=== PATIENT | female | born 1970 | race Caucasian/White ===

== ENCOUNTER 2017-01-30 10:27 | Emergency (ER) | payer MEDICAID ==
[2017-01-30 10:43] LABS: % IMMATURE GRANULYOCYTES 0.2 % (0.0-1.1); ABSOLUTE IMMATURE GRANULOCYTES 0.01 10^3/uL (0.00-0.10); ADD DIFF? NO; ADD MORPH? NO; ADD SCAN? NO; ATYPICAL LYMPHOCYTE FLAG 10 (0-99); FRAGMENT RBC FLAG 0 (0-99); LEFT SHIFT FLG 0 (0-99); LIPEMIA HEMOLYSIS FLAG 80 (0-99); MEAN CELL HEMOGLOBIN 28.3 pg (27.9-34.1); MEAN CELL HEMOGLOBIN CONCENTR. 32.5 g/dL (32.4-36.7); MEAN PLATELET VOLUME 10.6 fL (8.7-11.7); PLATELET CLUMPS FLAG 0 (0-99); PLATELET COUNT 250 10^3/uL (150-400); RED CELL DISTRIBUTION WIDTH 14.5 % (11.5-15.2)
--- NOTE | 2017-01-30 10:47 | CPEKG ---
Heart Rate: 73 RR Interval: 822 P-R Interval: 136 QRSD Interval: 78 QT Interval: 376 QTC Interval: 415 P [place]: 67 QRS [place]: 64 T Wave [place]: 63 EKG Severity - NORMAL ECG - EKG Impression: SINUS RHYTHM Preliminary Awaiting MD Review
[2017-01-30 11:10] LABS: ALANINE AMINOTRANSFERASE 29 IU/L (9-52); ALBUMIN 4.3 g/dL (3.5-5.0); ALKALINE PHOSPHATASE 55 IU/L (38-126); ANION GAP 12 mEq/L (8-16); ASPARTATE AMINOTRANSFERASE 25 IU/L (14-46); BILIRUBIN,TOTAL 0.8 mg/dL (0.1-1.4); CALCIUM 9.4 mg/dL (8.5-10.4); CARBON DIOXIDE 23 mEq/l (22-31); CHLORIDE 102 mEq/L (97-110); CREATININE 0.8 mg/dL (0.6-1.0); GLOMERULAR FILTRATION RATE > 60; GLUCOSE 123 mg/dL (70-100); POTASSIUM 3.9 mEq/L (3.5-5.2); SODIUM 137 mEq/L (134-144); TOTAL PROTEIN 7.3 g/dL (6.3-8.2)
[2017-01-30] MEDS ORDERED: NS 1,000 ML IV ONE (11:10)
--- NOTE | 2017-01-30 11:10 | EDPHY ---
General Narrative: CHIEF COMPLAINT: Loss of conscious HISTORY OF PRESENT ILLNESS: Patient presents with complaints of loss of consciousness. 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 She does not know entirely what happened. She had no preceding aura, chest pain, changes in smell. This reportedly lasted several minutes. She was somewhat confused after the event. At time of examination she has no complaints other than mild headache. She has no chest pain. No neck pain or stiffness. No shortness of breath. No abdominal pain. No nausea. No changes in vision. No previous incidence of seizure or syncope, but she has been told that she may have had TIAs in the past. No other associated complaints or modifying factors. REVIEW OF SYSTEMS: Ten systems reviewed and are negative unless otherwise noted in the HPI PCP: [facility] SPECIALISTS: None PAST MEDICAL HISTORY: Questionable history of TIA PAST SURGICAL HISTORY: None SOCIAL HISTORY: Nonsmoker. No alcohol or illicit substances. Works as a Didactic Instructor FAMILY HISTORY: Noncontributory EXAMINATION General Appearance: Alert, no distress Head: normocephalic, atraumatic. No Denise sign. No raccoon eyes. Eyes: Pupils equal and round, no conjunctival pallor or injection ENT, Mouth: Mucous membranes moist. Airway widely patent Neck: Normal inspection, supple, non-tender Respiratory: Lungs are clear to auscultation. No wheezing rhonchi or crackles Cardiovascular: Regular rate and rhythm. No murmur Gastrointestinal: Abdomen is soft and nontender Back: non-tender, no bony abnormalities Neurological: GCS 15. A&O, nonfocal, strength is symmetric in all 4 limbs. No pronator drift. No dysmetria. Normal mental status Skin: Warm and dry, no rash. No lacerations or abrasions Extremities: Nontender, no pedal edema Psychiatric: Mood and affect normal DIFFERENTIAL DIAGNOSES: Including but not limited to sink, seizure, dehydration MDM: 11:09 a.m. Loss of consciousness that is likely syncope versus seizure. Vital signs are within normal limits. She does not appear to be postictal at this time. No chest pain. EKG unremarkable. Laboratory studies pending. No indication for CT scan at this time as she had no trauma and she has had CT scans in the past for possible TIAs. 11:45 a.m. The CBC negative. Chemistry negative. Troponin negative. Prolactin is significantly elevated, suggesting the possibility of seizure. I have re- evaluated the patient. There is still no seizure-like activity and she denies having had a CT scan in the past. I previously missed occur and thought that she had. Thus I have ordered CT scan of the head with no contrast per 12:30 p.m. Contacted by radiologist Dr. Willis. CT scan of the head reveals no acute findings. 12:40 p.m. Patient re-evaluated. I have updated her regarding the findings of her CT and laboratory studies. I do feel she is stable for discharge home and she has had no evidence of seizure-like activity and she is thus not in status epilepticus. She is comfortable with this plan. We discussed strict no driving precautions for 90 days or until cleared by Neurology. She will be instructed to contact Neurology and/or primary care physician. She is instructed to return to the emergency department for any seizure activity or loss of consciousness. She is comfortable this plan and discharged in stable condition with her boyfriend and two daughters. EKG interpretation: The Dr. Mast - History Smoking Status: Never smoked - Objective Vital Signs: Initial Vital Signs Heart Rate 87 01/30/17 10:32 Respiratory Rate 18 01/30/17 10:32 Blood Pressure 135/77 H 01/30/17 10:32 O2 Sat (%) 97 01/30/17 10:32 O2 Delivery Mode Room Air Allergies/Adverse Reactions: No Known Allergies Allergy (Unverified 01/30/17 10:33) Laboratory Results: Laboratory Results 01/30/17 10:41 01/30/17 10:42 Medications Given: Discontinued Medications Sodium Chloride (Ns) 1,000 mls @ 0 mls/hr IV EDNOW ONE; Wide Open PRN Reason: Protocol Stop: 01/30/17 11:11 Last Admin: 01/30/17 11:17 Dose: 1,000 mls Departure - Departure Disposition: Home, Routine, Self-Care Clinical Impression: Loss of consciousness, Elevated prolactin level Condition: Good Instructions: New-Onset Seizure in Adults (ED), Driving Restrictions (ED) Additional Instructions: 1. No driving or operating machinery finding days or until seen by neurologist 2. Return to ED for return of symptoms Referrals: Patient,NotPresent [Unknown] - As per Instructions Chandan Gamble MD [Medical Doctor] - As per Instructions [facility],. [Clinic] - As per Instructions Brown Nunes, [Medical Doctor] - As per Instructions
[2017-01-30 11:25] LABS: INR 0.97 (0.83-1.16); PROTIME(PATIENT) 12.8 SEC (12.0-15.0)
[2017-01-30 11:35] LABS: TROPONIN I < 0.012 ng/mL (0.000-0.034)
[2017-01-30 11:36] VITALS: RESP 18
[2017-01-30 11:39] LABS: PROLACTIN 114.4 ng/mL (3.0-18.6)
[2017-01-30 12:45] VITALS: BP 98/70; PULSE 68; TEMP 98.2; O2SAT 95
== END 2017-01-30 12:48 | disposition home or self-care (01) ==
LOC: EDUNIT#
DX: R55 Syncope and collapse (principal); E22.1 Hyperprolactinemia; E86.9 Volume depletion, unspecified

== ENCOUNTER → 2017-02-17 | Outpatient (CLI) | payer MEDICAID ==
[~2017-02-17] MED LIST: GADOBUTROL 10 ML VIAL IVP ONE
== END ==
LOC: FIMAGING 10:13
PROVIDERS: ATTEND Psychiatry & Neurology Neurology
DX: R94.02 Abnormal brain scan (principal); R55 Syncope and collapse
CPT/HCPCS: A9585

== ENCOUNTER → 2017-02-19 | Outpatient (CLI) | payer MEDICAID ==
--- NOTE | 2017-02-19 14:24 | CPEEG ---
[f rep st] ELECTROENCEPHALOGRAM ELECTROENCEPHALOGRAM. DATE OF STUDY: 02/19/2017 INTERPRETATION: Normal EEG during wakefulness and sleep. There were no potentially epileptogenic ab normalities present during the recording. REPORT: This EEG contains 10 Hz alpha activity over the posterior head regions. There was no abnorm al activation at rest, during photic stimulation, or hyperventilation. The patient became drowsy and fell asleep during the study. There was no abnormal activation during drowsiness, sleep, or during times of arousal. /[id number]/MODL
== END ==
LOC: FCPNEURO 11:30
PROVIDERS: ATTEND Psychiatry & Neurology Neurology
DX: R55 Syncope and collapse (principal)